=== PATIENT | female | born 1955 | race Caucasian/White ===

== ENCOUNTER 2022-07-18 12:13 | Emergency (ER) | payer OTHER ==
[2022-07-18] MEDS ORDERED: KETOROLAC 30MG VIAL (30MG/ML) IM STA (13:34)
[2022-07-18] MEDS ORDERED: ORPHENADRINE CITRATE 30 MG/ML ML IM STA (13:34)
[2022-07-18] MEDS ORDERED: METH-662 PO (14:40)
[2022-07-18] MEDS ORDERED: NAPR375T6 PO (14:40)
== END 2022-07-18 15:48 | disposition home or self-care (01) ==
LOC: EDH 12:13
DX: G89.29 Other chronic pain (principal); M54.9 Dorsalgia, unspecified; M54.32 Sciatica, left side
CPT/HCPCS: 99284; 73502; 72100; 96372 ×2; J1885; J2360